=== PATIENT | female | born 1930 | race Caucasian/White ===

== ENCOUNTER 2016-08-17 07:47 | Day surgery (SDC) | payer MEDICARE, BC ==
[2016-08-17] MEDS ORDERED: ACETAMINOPHEN 325 MG ONE (07:54)
[2016-08-17 08:11] VITALS: PULSE 55
[2016-08-17] MEDS: PHENYLEPHRINE HCL 10% OPHTHAL SOL ONE ×2 (08:14→08:24)
[2016-08-17] MEDS: CYCLOPENTOLATE 1% SOL ONE ×2 (08:14→08:25)
[2016-08-17] MEDS: PROPARACAINE HCL 0.5% OPHTHALMIC SOL ONE ×3 (08:14→09:35)
[2016-08-17] MEDS ORDERED: MIDAZOLAM 2 MG/2 ML SOL ONE (08:38)
[2016-08-17] MEDS ORDERED: PROPOFOL 10 MG/ML EMU IV ONE (08:38)
[2016-08-17] MEDS ORDERED: POVIDONE IODINE 5% SOL ONE (09:21)
[2016-08-17] MEDS ORDERED: LIDOCAINE HCL 2% MPF SOL ONE (09:21)
[2016-08-17] MEDS ORDERED: LIDOCAINE HCL 1% MPF SOL ONE (09:22)
[2016-08-17] MEDS ORDERED: HYALURONIDASE 200 U/ML SOL SC ONE (09:22)
[2016-08-17] MEDS ORDERED: BSS W/ 0.25MG P.F. EPI 1 BOTTLE ONE (09:22)
[2016-08-17] MEDS ORDERED: TRYPAN BLUE 0.5 ML SOL IO ONE (09:22)
[2016-08-17] MEDS ORDERED: BACITRACIN 500 U/GM OIN TOP ONE (09:23)
[2016-08-17 10:37] VITALS: BP 152/73; RESP 18; TEMP 97.4; O2SAT 95
== END 2016-08-17 11:07 | disposition home or self-care (01) | DRG 125 ==
LOC: SURG 07:47
PROVIDERS: ATTEND Ophthalmology
DX: H25.811 Combined forms of age-related cataract, right eye (principal); H21.81 Floppy iris syndrome; H57.09 Other anomalies of pupillary function
CPT/HCPCS: J2250; J3470; J2001; J2704

== ENCOUNTER 2017-06-15 08:25 | Day surgery (SDC) | payer MEDICARE, BC ==
[~2017-06-15 08:25] MED LIST: LIDOCAINE HCL 1% MPF SOL ONE; PROPOFOL 500 MG/50 ML EMU IV ONE
[2017-06-15 09:43] VITALS: O2SAT 98
[2017-06-15 10:01] VITALS: BP 146/60; PULSE 57; RESP 20; TEMP 97
== END 2017-06-15 11:50 | disposition home or self-care (01) | DRG 378 ==
LOC: SURG 08:25
PROVIDERS: ATTEND Surgery
DX: K92.1 Melena (principal); C18.2 Malignant neoplasm of ascending colon; D50.0 Iron deficiency anemia secondary to blood loss (chronic); K62.1 Rectal polyp; K57.30 Diverticulosis of large intestine without perforation or abscess without bleeding; K63.5 Polyp of colon; R93.422 Abnormal radiologic findings on diagnostic imaging of left kidney; R93.3 Abnormal findings on diagnostic imaging of other parts of digestive tract; N20.0 Calculus of kidney
CPT/HCPCS: 36415; 71260; 74177; 82565; Q9967; J2001; J2704

== ENCOUNTER 2018-05-29 11:48 | Outpatient (CLI) | payer MEDICARE, BC | END 2018-05-29 11:49 | disposition home or self-care (01) | DRG 556 | LOC: CONVCARE 11:48 | PROVIDERS: ATTEND Orthopaedic Surgery | DX: M25.562 Pain in left knee (principal); M25.561 Pain in right knee | CPT/HCPCS: 72170; 73562 ==